=== PATIENT | male | born 1950 | race Caucasian/White ===

== ENCOUNTER 2020-01-01 08:00 | Day surgery (SDC) | payer OTHER ==
[2019-12-18 09:12] VITALS: BMI 30.7
[~2020-01-01 08:00] MED LIST: LACTATED RINGERS 1,000 ML IV SCH
[2020-01-01] MEDS ORDERED: LIDOCAINE 1% (10MG/ML) FOR IV START INTRADERMA ONE (08:40)
[2020-01-01 08:43] VITALS: TEMP 97.7
[2020-01-01 08:46] LABS: Glucose,Whole Blood 124 mg/dL (75-99)
[2020-01-01] MEDS ORDERED: PROPOFOL 10 MG/ML 20 ML VIAL IV ONE (09:02)
--- NOTE | 2020-01-01 09:35 | P.PCN ---
Date of Procedure: 01/01/20 Description of Procedure: BRIEF HISTORY: Patient is a 69-year-old male presenting for outpatient colonoscopy for screening for malignant neoplasm of the colon. Previous colonoscopy 5 years ago. He does have a history of colon polyps. Family history unknown. PROCEDURE PERFORMED: Colonoscopy with polypectomy. PREOPERATIVE DIAGNOSIS: Screening for malignant neoplasm of the colon, last colonoscopy 5 years ago, patient does have a history of colon polyps. ESTIMATED BLOOD LOSS: Minimal. IV sedation per Anesthesia. PROCEDURE: After informed consent was obtained, the patient, was brought into the endoscopy unit. IV sedation was administered by Anesthesia under continuous monitoring. Digital rectal examination was normal. Initially the Olympus CF-190 flexible video colonoscope was then inserted in the rectum, gradually advanced into the cecum without any difficulty. Careful examination was performed as the scope was gradually being withdrawn. Ileocecal valve and the appendiceal orifice were visualized and appeared normal. Prep was excellent. Mucosa of the cecum, ascending colon, transverse colon, descending colon, sigmoid colon, and rectum appeared normal. 2 flat polyps measuring 5 and 4 mm in size removed from the ascending colon and transverse colon with cold snare polypectomy. Diminutive 2 mm splenic flexure polyp removed with cold forcep polypectomy. Retroflexion was performed in the rectum and no lesions were seen, low-grade internal hemorrhoids. The patient tolerated the procedure well. IMPRESSION: 2 flat polyps removed from the ascending colon and transverse colon with cold snare polypectomy. Diminutive splenic flexure polyp removed with cold forcep polypectomy. Internal hemorrhoids. RECOMMENDATIONS: Findings of this examination were discussed with the patient and his family. Okay to resume diet. Okay to resume medications. Await pathology from polypectomies. Would recommend repeat colonoscopy in 5 years pending pathology from polypectomies.
[2020-01-01 10:20] VITALS: BP 122/74; PULSE 78; RESP 18
== END 2020-01-01 10:31 | disposition home or self-care (01) ==
LOC: ORWHC2ENDO 08:00
PROVIDERS: ATTEND Internal Medicine
DX: Z12.11 Encounter for screening for malignant neoplasm of colon (principal); D12.2 Benign neoplasm of ascending colon; D12.3 Benign neoplasm of transverse colon; K64.8 Other hemorrhoids; Z86.010 Personal history of colon polyps; I10 Essential (primary) hypertension; I25.10 Atherosclerotic heart disease of native coronary artery without angina pectoris; E78.5 Hyperlipidemia, unspecified; G47.33 Obstructive sleep apnea (adult) (pediatric); E11.9 Type 2 diabetes mellitus without complications; K21.9 Gastro-esophageal reflux disease without esophagitis; Z79.84 Long term (current) use of oral hypoglycemic drugs; Z79.82 Long term (current) use of aspirin; Z79.899 Other long term (current) drug therapy; Z95.1 Presence of aortocoronary bypass graft; Z95.5 Presence of coronary angioplasty implant and graft; Z98.890 Other specified postprocedural states
CPT/HCPCS: 88305; 45380; 45385; J2704

== ENCOUNTER → 2022-06-07 | Outpatient (CLI) | payer OTHER ==
--- NOTE | 2022-06-07 11:11 | US ---
EXAMINATION TYPE: US liver DATE OF EXAM: 06/07/2022 COMPARISON: NONE CLINICAL HISTORY: R93.2. TECHNIQUE: Multiple sonographic images of the right upper quadrant are obtained. FINDINGS: EXAM MEASUREMENTS: Liver Length: 14.3 cm Gallbladder Wall: 0.3 cm CBD: 0.3 cm Right Kidney: 11.3 x 4.8 x 5.3 cm PHYSICIAN IN PRIVATE PRACTICE NOTES: Pancreas: Obscured by bowel gas Liver: wnl Gallbladder: No stones seen Evidence for sonographic Arnold's sign: No CBD: wnl Right Kidney: No hydronephrosis or masses seen Suboptimal evaluation of pancreas due to overlying bowel gas per technologist. Visualized liver shows no worrisome mass or ductal dilatation. No biliary dilatation. No right-sided hydronephrosis. No sha dowing mobile gallstones. IMPRESSION: No shadowing mobile gallstones or ultrasound evidence for acute cholecystitis.
== END | disposition home or self-care (01) ==
LOC: RADUSWWP 08:59
DX: R93.2 Abnormal findings on diagnostic imaging of liver and biliary tract (principal)
CPT/HCPCS: 76705

== ENCOUNTER → 2022-08-29 | Outpatient (CLI) | payer OTHER ==
--- NOTE | 2022-08-30 09:54 | CA ---
Transthoracic Echo Report Name: Denny Rodriguez Age: 72 Gender: M : 1950 Exam Date: 08/29/2022 15:45 Exam Location: [place] [facility] Ht (in): 71 Wt (lb): 212 Ordering Physician: [facility], Clinic Attending/Referring Phys: [facility] Ob Gyn Physician Assistant Any Gibson RDCS Procedure CPT: Indications: I35.0 Nonrheumatic aortic (valve) stenosis Cardiac Hx: Hx of CABG, stents Technical Quality: Good Contrast 1: Total Dose (mL): Contrast 2: Total Dose (mL): MEASUREMENTS (Male / Female) Normal Values 2D ECHO LV Diastolic Diameter PLAX 4.9 cm 4.2 - 5.9 / 3.9 - 5.3 cm LV Systolic Diameter PLAX 3.0 cm IVS Diastolic Thickness 1.4 cm 0.6 - 1.0 / 0.6 - 0.9 cm LVPW Diastolic Thickness 1.2 cm 0.6 - 1.0 / 0.6 - 0.9 cm LV Relative Wall Thickness 0.5 RV Internal Dim ED PLAX 3.6 cm LVOT Diameter 2.7 cm LA Systolic Diameter LX 4.7 cm 3.0 - 4.0 / 2.7 - 3.8 cm LV Diastolic Volume MOD 4C 93.4 cm??? LV Systolic Volume MOD 4C 42.8 cm??? LV Ejection Fraction MOD 4C 54.2 % LV Cardiac Index MOD 4C 1346.8 cm???/min???m??? LV Diastolic Length 4C 7.7 cm LV Systolic Length 4C 6.5 cm LV Diastolic Volume MOD 2C 89.7 cm??? LV Systolic Volume MOD 2C 44.2 cm??? LV Ejection Fraction MOD 2C 50.7 % LV Cardiac Index MOD 2C 1210.5 cm???/min???m??? LV Diastolic Length 2C 8.2 cm LV Systolic Length 2C 6.7 cm LA Volume 47.0 cm??? 18 - 58 / 22 - 52 cm??? M-MODE Aortic Root Diameter MM 4.2 cm MV E Point Septal Separation 0.7 cm AV Cusp Separation MM 1.3 cm DOPPLER AV Peak Velocity 289.3 cm/s AV Peak Gradient 33.5 mmHg AV Mean Velocity 196.6 cm/s AV Mean Gradient 17.7 mmHg AV Velocity Time Integral 67.6 cm LVOT Peak Velocity 109.0 cm/s LVOT Peak Gradient 4.8 mmHg AV Area Cont Eq pk 2.1 cm??? MV Area PHT 2.6 cm??? Mitral E Point Velocity 86.3 cm/s Mitral A Point Velocity 89.6 cm/s Mitral E to A Ratio 1.0 MV Deceleration Time 292.0 ms MV E' Velocity 6.4 cm/s Mitral E to MV E' Ratio 13.5 TR Peak Velocity 215.5 cm/s TR Peak Gradient 18.6 mmHg Right Ventricular Systolic Press 23.1 mmHg FINDINGS Left Ventricle Left ventricular ejection fraction is estimated at 55 %. Left ventricular cavity size normal. Mildly increased septal wall thickness. Right Ventricle Mild right ventricular dilatation. Right ventricular systolic pressure within normal limits. Right Atrium Normal right atrial size. Left Atrium Moderately increased left atrial diameter. Mitral Valve Mitral valve thickened. Mitral annular calcification. Trace mitral regurgitation. Aortic Valve Moderate aortic valve sclerosis. Mild aortic stenosis with a peak gradient of 34 mmHg and a mean gradient of 18 mmHg. Trace aortic regurgitation. Tricuspid Valve Structurally normal tricuspid valve. Mild tricuspid regurgitation. Pulmonic Valve Structurally normal pulmonic valve. Trace pulmonic regurgitation. Pericardium Normal pericardium. No pericardial effusion. Aorta Moderate aortic dilatation at the level of the sinuses of valsalva 42 mm CONCLUSIONS Normal LV size and systolic function with mild concentric LVH. Right ventricular is prominent. There is mild to moderate aortic stenosis. No pericardial effusion no significant pulmonary hypertension Previewed by: Dr. Shelli Carmona MD (Electronically Signed) Final Date: 30 August 2022 09:54
== END | disposition home or self-care (01) ==
LOC: RADECHMAIN 15:38
DX: I35.0 Nonrheumatic aortic (valve) stenosis (principal)
CPT/HCPCS: 93306

== ENCOUNTER → 2023-06-22 | Outpatient (CLI) | payer OTHER ==
[2023-06-22 09:47] LABS: African American GFR (CKD) 76 (>60 ml/min/1.73 sqM); Blood Urea Nitrogen 18 mg/dL (9-20); Non-African American GFR(CKD) 66 (>60 ml/min/1.73 sqM)
--- NOTE | 2023-06-22 11:33 | CT ---
EXAMINATION TYPE: CT chest w con DATE OF EXAM: 06/22/2023 COMPARISON: 05/05/2010 HISTORY: 73-year-old male R91.1, pulmonary nodule TECHNIQUE: Contiguous axial scanning of the chest after the administration of 100 mL of Isovue 300. Coronal/sagittal reconstructions performed. CT DLP: 618mGycm. Automatic exposure control utilized for a dose reduction. FINDINGS: Heart normal size without pericardial effusion. Moderate aortic valvular calcifications. The sternotomy wires and post-CABG changes. Ectatic ascending aorta 3.9 cm. 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 No thoracic lymphadenopathy by CT size criteria. Minimal biapical pleural parenchymal scarring. Some strandy atelectasis or scarring at the lung bases . There may be some minimal interstitial fibrosis present. 6 mm left basilar pulmonary nodule, axial image 51. No consolidation or pleural effusion. Tiny hiatal hernia. Visualized upper abdomen shows moderate stool. Bones: Mild degenerative disc disease midthoracic spine. No osseous destructive process. IMPRESSION: 1. A nonspecific 6 mm left basilar pulmonary nodule. Per Fleischner guidelines, recommend CT follow-u p in 6-[address] in 18-24 months. 2. There may be some mild interstitial fibrosis in the lower lungs.
== END | disposition home or self-care (01) ==
LOC: RADCTMAIN 08:58
PROVIDERS: ATTEND Internal Medicine
DX: R91.1 Solitary pulmonary nodule (principal)
CPT/HCPCS: 82565; 84520; 71260; 36415; Q9967

== ENCOUNTER → 2024-07-14 | Outpatient (CLI) | payer OTHER ==
--- NOTE | 2024-07-14 07:59 | CT ---
EXAMINATION TYPE: CT chest wo con DATE OF EXAM: 07/14/2024 7:35 AM COMPARISON: 06/22/2023. CLINICAL INDICATION: Male, 74 years old with history of R91.1 PULMONARY NODULE; PHH, pulmonary nodule TECHNIQUE: Multiple axial images were obtained through the chest. Sagittal and coronal reformats were created for review. MIP was performed on a separate workstation. Contrast used: mL of (None if empty) Oral contrast used: (None if empty) CT DLP: 504 mGycm, Automated exposure control for dose reduction was used. FINDINGS: LUNGS/ PLEURA: Stable left lower lobe 6 mm pulmonary nodule above the diaphragm. Series 3 image 52 No focal consolidation, pneumothorax or pleural effusion. AIRWAY: Patent and unremarkable. HEART: Size within normal limits.Severe aortic valve densities possibly calcifications. Moderate jessa nary artery calcifications present. MEDIASTINUM: No gross evidence of adenopathy. VASCULATURE: No aortic aneurysm. MUSCULOSKELETAL: Mild disc degeneration changes are present throughout the thoracolumbar spine second lucille to osteophyte formation and facet joint arthropathy. Sternotomy wires present. SOFT TISSUES/LYMPH NODES: Unremarkable. LOWER NECK: No significant findings. UPPER ABDOMEN: No significant findings. IMPRESSION: 1. Stable left lower lobe pulmonary nodule. Consider yearly low-dose lung cancer screening the patie nt meets criteria. 2. Mild emphysema. 3. No evidence for acute process. 4. Severe coronary artery atherosclerosis. 5. Severe aortic valve calcifications. [facility], , 07/14/2024 7:57 AM
== END | disposition home or self-care (01) ==
LOC: RADCTMAIN 07:20
PROVIDERS: ATTEND Family Medicine
DX: I25.10 Atherosclerotic heart disease of native coronary artery without angina pectoris (principal); I70.0 Atherosclerosis of aorta; R91.1 Solitary pulmonary nodule; J43.9 Emphysema, unspecified
CPT/HCPCS: 71250